=== PATIENT | male | born 1980 ===

== ENCOUNTER 2018-07-12 11:26 | Outpatient (CLI) | payer SELFPAY | END 2018-07-12 11:27 | disposition home or self-care (01) | LOC: C.PAT 11:26 ==

== ENCOUNTER 2018-07-20 08:57 | Day surgery (SDC) | payer SELFPAY ==
[2018-07-11 11:37] VITALS: BMI 34.9
[2018-07-20] MEDS ORDERED: Propofol 10 mg/ml Inj (20 ML) ONE ×2 (11:12→11:52)
[2018-07-20] MEDS ORDERED: Midazolam 2 MG/2 ML VIAL ONE (11:12)
[2018-07-20] MEDS ORDERED: Lidocaine Hydrochloride 5 ML INJ ONE (11:26)
[2018-07-20] MEDS ORDERED: Ciprofloxacin 400mg/200ml D5W 400 MG/200 ML BAG IVPB ONE (11:31)
[2018-07-20] MEDS ORDERED: HYDROmorphone 0.5 mg/0.5 ml ISec IVP PRN (12:34)
--- NOTE | 2018-07-20 12:51 | PCM.SURG1 ---
Surgeon's Initial Post Op Note - Surgeon's Notes Surgeon: rachna Director Talent Management: none Type of Anesthesia: IV Sedation Anesthesia Administered By: Joe Pre-Operative Diagnosis: meatal stenosis Operative Findings: edema meatus.glan hypospadia.prostatitis Post-Operative Diagnosis: edema meatus.glans hypospadia. prostatitis. Operation Performed: urethral dilatation cystoscopy Specimen/Specimens Removed: none Estimated Blood Loss: EBL {In ML}: 0 Blood Products Given: N/A Drains Used: No Drains Post-Op Condition: Good Date of Surgery/Procedure: 07/20/18 Time of Surgery/Procedure: 12:54
[2018-07-20 12:59] VITALS: O2SAT 100
[2018-07-20 13:34] VITALS: PULSE 68; RESP 12
[2018-07-20 14:35] VITALS: TEMP 98.4
[2018-07-20 14:58] VITALS: BP 126/67
--- NOTE | 2018-07-21 23:18 | OP ---
PROCEDURE DATE: 07/20/2018 PREOPERATIVE DIAGNOSIS: Edema of meatus. POSTOPERATIVE DIAGNOSES: Edema of meatus, prostatitis, glans hypospadias. PROCEDURE: Cystoscopy, urethral dilatation. SURGEON: Donovan Quick MD GROSS FINDINGS: Good bladder capacity. Edema of meatus, glans hypospadia. Good bladder capacity. No tumors or stones were observed in the bladder and mild trabeculated bladder. Urethral orifice is normal in place and in configuration. Inflammation of prostate gland noted. Membranous and pendulous urethra normal. TECHNIQUE: This patient was placed in lithotomy position. The external genitalia was prepped and draped in the usual sterile fashion. A #17 panendoscope was introduced in the urethra without difficulties because of the glans hypospadia. The instrument was advanced into the prostate and bladder. Finding as above. The urethra was dilated to #24 [place] sounds. The procedure was terminated. A #20-[place] 5 mL [place] was left indwelling to be connected to gravity drainage. The patient withstood the procedure well and returned to recovery room in satisfactory condition. Donovan Quick MD
== END 2018-07-20 15:02 | disposition home or self-care (01) ==
LOC: C.SDS 08:57 → EDBD 08:57 → C.SDS 15:02
PROVIDERS: ATTEND Urology
DX: N32.0 Bladder-neck obstruction (principal); N35.911 Unspecified urethral stricture, male, meatal; N41.9 Inflammatory disease of prostate, unspecified; Q54.1 Hypospadias, penile
CPT/HCPCS: 52281; J0744; J1170